=== PATIENT | female | born 1995 | race African-American/Black ===

== ENCOUNTER 2018-10-30 18:32 | Emergency (ER) | payer OTHER ==
[~2018-10-30] VITALS: Ht 162.6 cm; Wt 57.8 kg
[2018-10-30 19:02] VITALS: BP 124/68; PULSE 76; RESP 18; Ht 162.6 cm; Wt 57.8 kg
[2018-10-30] MEDS ORDERED: LIDOCAINE 1% (MDV) 10 ML INJ INJ STA (19:50)
[2018-10-30] MEDS: ACETAMINOPHEN 500 MG TAB PO STA (20:10)
[2018-10-30] MEDS ORDERED: LIDOCAINE 1% (MPF) 5 ML VIAL INJ ONE (20:30)
[2018-10-30] MEDS ORDERED: IBUP-1561 PO (20:32)
--- NOTE | 2018-10-30 20:35 | ERD ---
ER Documentation Chief Complaint Chief Complaint right hand laceration with knife while in movie set today at 12 pm HPI 22-year-old female sustained a laceration on her right hand with a knife while acting on a movie set. She was cut accidentally by another active patient has no restricted range of motion weakness or deficits or active bleeding. Tetanus is up-to-date. ROS All systems reviewed and are negative except as per history of present illness. Medications Home Meds Active Scripts Ibuprofen* (Motrin*) 400 Mg Tab, 400 MG PO Q6H PRN for PAIN AND OR ELEVATED TEMP, #15 TAB Prov:KARIE KAT MD 10/30/18 Allergies Allergies: Coded Allergies: No Known Drug Allergies (Verified Allergy, Unknown, 10/30/18) PMhx/Soc Medical and Surgical Hx: pt denies Medical Hx, pt denies Surgical Hx Hx Alcohol Use: No Hx Substance Use: No Hx Tobacco Use: No Smoking Status: Unknown if ever smoked FmHx Family History: No diabetes, No coronary disease, No other Physical Exam Vitals Vital Signs Date Temp Pulse Resp B/P (MAP) Pulse Ox O2 O2 Flow FiO2 Time Delivery Rate 10/30/18 98.5 76 18 124/68 100 19:02 (86) Physical Exam Const: No acute distress Head: Atraumatic Eyes: Normal Conjunctiva ENT: Normal External Ears, Nose and Mouth. Neck: Full range of motion. No meningismus. Resp: Clear to auscultation bilaterally Cardio: Regular rate and rhythm, no murmurs Abd: Soft, non tender, non distended. Normal bowel sounds Skin: No petechiae or rashes Back: No midline or flank tenderness Ext: No cyanosis, or edema good 1 cm laceration on the right hand just lateral to the second metacarpal phalangeal joint area. No deficits, restricted range of motion or weakness. No exposed or appreciable lacerated tendons. Neur: Awake and alert Psych: Normal Mood and Affect Results 24 hrs Current Medications Medications Dose Sig/Andrew Start Time Status Last (Trade) Ordered Route PRN Stop Time Admin Dose Reason Admin Lidocaine 10 ml ONCE STAT 10/30/18 DC HCl INJ 19:50 (Lidocaine 10/30/18 19:51 1% (Mdv) 10 ml) 500 mg ONCE STAT 10/30/18 DC Acetaminophen PO 19:50 (Tylenol 4/20/19 19:51 Tab) Lidocaine 10 ml ONCE ONCE 10/30/18 DC (Xylocaine INJ 20:30 1% (Mpf)) 10/30/18 20:31 Procedures/MDM Patient presents with signs of a superficial laceration of the right hand without signs of deficits, tendon laceration, infection, ischemia, additional complications. Procedure note-right hand was irrigated copiously with normal saline. 1 cc lidocaine was used for local infiltration. 5 5-0 nylon sutures were used to reapproximate the wound. Patient tolerated procedure well and wound was dressed. Patient will be discharged home with recommendations for 2-day wound check in 10 days suture removal. Should return sooner for fevers, redness, new worsening symptoms. Departure Diagnosis: Primary Impression: Laceration Condition: Stable Patient Instructions: Laceration, Hand Referrals: NO PRIMARY,CARE PHYSICIAN (PCP) Additional Instructions: Wound check in 2 days for check for infection. Suture removal in 10 days. Recheck otherwise for redness, fevers, new symptoms. KARIE KAT MD Oct 30, 2018 20:35
== END 2018-10-30 21:22 | disposition home or self-care (01) ==
LOC: FTE 18:32
DX: S61.411A Laceration without foreign body of right hand, initial encounter (principal); W26.0XXA Contact with knife, initial encounter; Y92.9 Unspecified place or not applicable
CPT/HCPCS: 12001; Z7502; Z7610